=== PATIENT | female | born 1995 | race Caucasian/White ===

== ENCOUNTER 2020-06-04 20:25 | Emergency (ER) | payer OTHER ==
[~2020-06-04] VITALS: Ht 177.8 cm; Wt 68.2 kg
[2020-06-04 20:38] VITALS: TEMP 100.4
[2020-06-04 21:39] LABS: STREP SCREEN NEGATIVE
[2020-06-04 22:37] VITALS: BP 108/66; PULSE 71
== END 2020-06-04 22:37 | disposition home or self-care (01) ==
LOC: COL.ER 20:25
PROVIDERS: Physician Assistant
DX: J02.9 Acute pharyngitis, unspecified (principal); B00.2 Herpesviral gingivostomatitis and pharyngotonsillitis; Z20.828 Contact with and (suspected) exposure to other viral communicable diseases
CPT/HCPCS: J1100; J1885